=== PATIENT | female | born 1995 | race Hispanic/Latino ===

== ENCOUNTER 2018-02-25 17:33 | Observation (INO) | payer BC ==
[~2018-02-25] VITALS: Ht 160 cm; Wt 57.6 kg
[2018-02-25 17:51] VITALS: BP 123/99
[2018-02-25] MEDS ORDERED: FERR1TAB22 PO (18:00)
[2018-02-25 18:33] LABS: MEAN CORPUSCULAR HEMOGLOBIN 27.1 pg (27.0-33.0); MEAN CORPUSCULAR HGB CONC 32.7 g/dL (32.0-36.0); PLATELET COUNT (AUTO) 468 K/uL (130-400); RED BLOOD CELL COUNT(AUTO) 2.18 MIL/uL (4.00-5.50); RED CELL DISTRIBUTION WIDTH 16.3 % (11.0-15.5); WHITE BLOOD COUNT (AUTO) 6.9 K/uL (4.8-10.8)
[2018-02-25 19:12] LABS: BAND NEUTROPHILS % (MANUAL) 2 % (0-2); LYMPHOCYTES % (MANUAL) 17 % (22-44); MONOCYTES % (MANUAL) 4 % (2-9); SEGMENTED NEUTROPHILS % 77 % (40-70)
[2018-02-25 19:15] LABS: MAN.DIFF COMMENT-IMPRESSION MANUAL DIFFERENTIAL
[2018-02-25 19:16] LABS: PLATELET MORPHOLOGY COMMENT LARGE PLTS PRESENT
[2018-02-25 19:42] LABS: HEMATOCRIT 18.1 % (36-48)
[2018-02-25 19:47] VITALS: BP 118/64
[2018-02-25 23:00] VITALS: BP 111/60
[2018-02-26 02:11] LABS: HEMATOCRIT 22.7 % (36-48)
[2018-02-26 03:00] VITALS: BP 108/63
[2018-02-26 07:27] VITALS: BP 142/77
[2018-02-26 08:01] VITALS: BP 109/76
[2018-02-26] MEDS ORDERED: PHARMACY COMMUNICATION MISC SCH (10:30)
[2018-02-26 11:50] VITALS: BP 106/82
[2018-02-26] MEDS: NORETHINDRONE-ETHINYL ESTRAD 1 TABLET PO SCH ×2 (13:15→14:00)
[2018-02-26 14:53] LABS: HEMATOCRIT 30.7 % (36-48)
== END 2018-02-26 15:45 | disposition home or self-care (01) ==
LOC: WSH 17:33 → UNDOADMOB 17:33
PROVIDERS: ADMIT Advanced Practice Midwife; ATTEND Advanced Practice Midwife
DX: D50.0 Iron deficiency anemia secondary to blood loss (chronic) (principal); N92.0 Excessive and frequent menstruation with regular cycle; Z83.3 Family history of diabetes mellitus; Z81.8 Family history of other mental and behavioral disorders
CPT/HCPCS: 36415 ×2; 36430 ×2; 76856; 84702; 85014 ×2; 85018 ×2; 85025; 85060; 86850; 86900; 86901; 86922 ×2; 88313; G0378 ×23; J7030; P9016 ×4

== ENCOUNTER 2019-06-11 10:08 | Emergency (ER) | payer BC, MEDICAID ==
[~2019-06-11 10:08] MED LIST: FERR1TAB22 PO
[2019-06-11] MEDS ORDERED: LACTATED RINGERS 1000ML 2,000 ML IV ONE (10:36)
[2019-06-11 10:40] LABS: BASOPHILS % (AUTO) 0.4 % (0.0-5.0); EOSINOPHILS % (AUTO) 0.1 % (0.0-8.0); HEMATOCRIT 36.3 % (36-48); LYMPHOCYTES % (AUTO) 16.7 % (21.0-51.0); MEAN CORPUSCULAR HEMOGLOBIN 32.7 pg (27.0-33.0); MEAN CORPUSCULAR HGB CONC 34.6 g/dL (32.0-36.0); MEAN CORPUSCULAR VOLUME 94.6 fL (79-99); MONOCYTES % (AUTO) 5.8 % (3.0-13.0); PLATELET COUNT (AUTO) 263 K/uL (130-400); RED BLOOD CELL COUNT(AUTO) 3.84 MIL/uL (4.00-5.50); RED CELL DISTRIBUTION WIDTH 13.3 % (11.0-15.5); WHITE BLOOD COUNT (AUTO) 7.9 K/uL (4.8-10.8)
[2019-06-11 10:49] LABS: APPEARANCE,URINE Clear (CLEAR); BILIRUBIN,URINE Negative (NEGATIVE); COLOR,URINE Yellow (YELLOW); GLUCOSE, URINE (UA) Negative (NEGATIVE); KETONES,URINE Negative (NEGATIVE); LEUKOCYTE ESTERASE ,URINE Trace (NEGATIVE); NITRATE,URINE Negative (NEGATIVE); OCCULT BLOOD,URINE Negative (NEGATIVE); PROTEIN,URINE Negative (NEGATIVE)
[2019-06-11 10:51] LABS: CREATININE 0.5 mg/dL (0.5-1.5); POTASSIUM 3.9 mmol/L (3.5-5.1)
[2019-06-11 11:25] LABS: BACTERIA,URINE Rare /HPF (None Seen); RBC,URINE 0-1 /HPF (0-1); SQUAMOUS EPITHELIAL CELL,UR Few /HPF (0-2); WBC,URINE 0-1 /HPF (0-1)
== END 2019-06-11 12:04 | disposition home or self-care (01) ==
LOC: EDH 10:08
DX: O26.892 Other specified pregnancy related conditions, second trimester (principal); E86.0 Dehydration; R10.2 Pelvic and perineal pain; R42 Dizziness and giddiness; Z90.49 Acquired absence of other specified parts of digestive tract; Z3A.18 18 weeks gestation of pregnancy
CPT/HCPCS: 36415; 80048; 81001; 85025; 96360; 99284; J7120